=== PATIENT | female | born 1995 | race Caucasian/White ===

== ENCOUNTER 2023-09-10 13:06 | Emergency (ER) | payer OTHER ==
[~2023-09-10] VITALS: Ht 175.3 cm; Wt 54.4 kg
[2023-09-10 14:04] LABS: ALBUMIN 3.6 g/dL (3.4-5.0); BILIRUBIN,DIRECT 0.3 mg/dL (0.0-0.2); BILIRUBIN,TOTAL 1.5 mg/dL (0.2-1.0); CALCIUM 8.6 mg/dL (8.5-10.1); CREATININE 0.7 mg/dL (0.6-1.3); POTASSIUM 3.8 mmol/L (3.5-5.1)
[2023-09-10 14:12] LABS: *BILIRUBIN,URIN NEGATIVE (NEGATIVE); *BLOOD, URINE NEGATIVE (NEGATIVE); *CLARITY,URINE CLEAR (CLEAR); *COLOR,URINE YELLOW (YELLOW); *KETONES,URINE 1+ (NEGATIVE); *PROTEIN,URINE NEGATIVE (NEGATIVE); LEUKOCYTE ESTERASE ,URINE TRACE (NEGATIVE); NITRITE, URINE NEGATIVE (NEGATIVE); PH,URINE 6.5 (5.0-8.0); UGLUCOSE NEGATIVE (NEGATIVE)
[2023-09-10 14:14] LABS: BASOPHILS # (AUTO) 0.1 K/UL (0.0-0.2); BASOPHILS % (AUTO) 1.4 % (0.0-2.0); EOSINOPHILS % (AUTO) 0.8 % (0.0-7.0); HEMATOCRIT 36.8 % (31.2-41.9); HEMOGLOBIN 12.4 g/dL (10.9-14.3); LYMPHOCYTES # (AUTO) 0.4 K/uL (0.8-4.8); LYMPHOCYTES % (AUTO) 9.3 % (20.5-51.5); MEAN CORPUSCULAR HEMOGLOBIN 29.9 uug (24.7-32.8); MEAN CORPUSCULAR HGB CONC 34 g/dL (32.3-35.6); MEAN CORPUSCULAR VOLUME 88.8 fL (75.5-95.3); MONOCYTES # (AUTO) 0.4 K/uL (0.1-1.30); MONOCYTES % (AUTO) 8.6 % (0.0-11.0); NEUTROPHILS # (AUTO) 3.5 K/uL (1.8-8.9); NEUTROPHILS % (AUTO) 79.9 % (38.5-71.5); PLATELET COUNT (AUTO) 139 K/uL (179-408); RED BLOOD CELL COUNT(AUTO) 4.14 MIL/uL (3.63-4.92); RED CELL DISTRIBUTION WIDTH 12.1 % (12.3-17.7); WHITE BLOOD COUNT (AUTO) 4.3 K/uL (3.8-11.8)
[2023-09-10] MEDS ORDERED: IBUPROFEN 400 MG TABLET ONE (14:27)
[2023-09-10] MEDS ORDERED: ACETAMINOPHEN ES 500 MG TABLET ONE (14:27)
[2023-09-10 14:28] LABS: RBC,URINE 0-3 /HPF (0-3)
[2023-09-10 14:29] LABS: BACTERIA,URINE MODERATE /HPF (NONE SEEN); SQUAMOUS EPITHELIAL CELL,UR MANY /HPF (NONE SEEN)
[2023-09-10] MEDS: ACETAMINOPHEN ES 500 MG TABLET PO ONE (14:29)
[2023-09-10] MEDS: IBUPROFEN 400 MG TABLET PO ONE (14:29)
[2023-09-10 14:39] LABS: *URINE HCG, QUAL NEGATIVE (NEGATIVE)
[2023-09-10] MEDS ORDERED: FOSFOMYCIN TROMETHAMINE 3 GM PACKET ONE (14:58)
[2023-09-10] MEDS: FOSFOMYCIN TROMETHAMINE 3 GM PACKET PO ONE (15:01)
[2023-09-10 15:03] VITALS: BP 120/71; O2SAT 100
== END 2023-09-10 15:03 | disposition home or self-care (01) ==
LOC: ER 13:10
DX: R10.9 Unspecified abdominal pain (principal); R10.2 Pelvic and perineal pain
CPT/HCPCS: 36415; 83690; 84703; 85025; A4606; A4663; A9150